=== PATIENT | male | born 1960 | race Caucasian/White ===

== ENCOUNTER 2021-06-10 17:48 | Emergency (ER) | payer BC ==
[2021-06-10] MEDS ORDERED: Lidocaine 1% PF 5 ML VIAL ONE (18:22)
[2021-06-10] MEDS ORDERED: Boostrix 0.5 ML (Tdap) VIAL ONE (19:00)
== END 2021-06-10 19:07 | disposition home or self-care (01) ==
LOC: BURERS 17:48
DX: S01.511A Laceration without foreign body of lip, initial encounter (principal); W14.XXXA Fall from tree, initial encounter
CPT/HCPCS: 12011; 90471; 90715